=== PATIENT | female | born 1990 | race Caucasian/White ===

== ENCOUNTER 2020-07-11 08:45 | Day surgery (SDC) | payer MEDICAID ==
[~2020-07-11] VITALS: Ht 160 cm; Wt 76.4 kg
[~2020-07-11 08:45] MED LIST: SEROQUEL100 MG PO; TYLENOL W/CODEI1 TAB PO; XANAX0.25 MG PO
[2020-07-11 09:12] LABS: HEMATOCRIT 42.8 % (36.0-48.0); HEMOGLOBIN 14.5 g/dL (12-16); MCH 30.4 pg (26.0-34.0); MCHC 33.9 g/dL (31.0-37.0); MCV 89.7 fL (80.0-100.0); MEAN PLATELET VOLUME 9.3 fL (7.4-10.4); RBC 4.77 10x6/uL (4.00-5.40); RDW 12.4 % (11.5-14.5); WBC 6.9 10x3/uL (4.8-10.8)
[2020-07-11 10:33] VITALS: BP 114/71; Ht 160 cm; Wt 76.4 kg
--- NOTE | 2020-07-11 14:55 | NUR ---
UP IN ROOM TO VOID, IV OUT TIP INTACT.
--- NOTE | 2020-07-11 15:07 | NUR ---
DISCHARGE INSTRUCTIONS PROVIDED TO PT AND SPOUSE, BOTH VOICED UNDERSTANDING. PT THEN DISCHARGED VIA W/C TO POV WITH SPOUSE DRIVING. ALL BELONGINGS WITH PT.
== END 2020-07-11 15:07 | disposition home or self-care (01) ==
LOC: D.OPS 08:45
PROVIDERS: Anesthesiology; ATTEND Obstetrics & Gynecology Maternal & Fetal Medicine
DX: N39.41 Urge incontinence (principal)

== ENCOUNTER 2020-08-22 06:15 | Day surgery (SDC) | payer MEDICAID ==
[~2020-08-22] VITALS: Ht 162.6 cm; Wt 76.7 kg
[2020-08-22 06:45] LABS: HEMATOCRIT 42.6 % (36.0-48.0); HEMOGLOBIN 14.4 g/dL (12-16); MCH 30.3 pg (26.0-34.0); MCHC 33.8 g/dL (31.0-37.0); MCV 89.7 fL (80.0-100.0); MEAN PLATELET VOLUME 9.8 fL (7.4-10.4); RBC 4.75 10x6/uL (4.00-5.40); RDW 12.3 % (11.5-14.5); WBC 7.9 10x3/uL (4.8-10.8)
[2020-08-22 08:01] VITALS: BP 106/68; Ht 162.6 cm; Wt 76.7 kg
--- NOTE | 2020-08-22 08:53 | NUR ---
[employer] SMN SYSTEM TINED LEAD KIT #1201 X 1 SN [id number] EXP. DATE: 06/05/2022 OPENED FOR USE WITH THIS PATIENT NOTED, SAMMIE ANAND
--- NOTE | 2020-08-22 08:54 | NUR ---
[employer] SMN SYSTEM LEAD IMPLANT KIT #1801 LOT # [id number] EXP. DATE: 02/01/2022 OPENED FOR USE WITH THIS PATIENT. NOTED, SAMMIE ANAND
--- NOTE | 2020-08-22 09:05 | NUR ---
[employer] ([employer] NEUROSTIMULATOR #1101 SN # [id number] EXP DATE:04/16/2023 IMPLANT NOTED, SAMMIE ANAND
--- NOTE | 2020-08-22 10:34 | NUR ---
1030 MEDICATED FOR PAIN, DRESSING CDI. NO SWELLING AT INCISION SITE.
--- NOTE | 2020-08-22 10:36 | NUR ---
1030 MEDICATED FOR PAIN
--- NOTE | 2020-08-22 12:07 | NUR ---
1055 [employer] SUPERVISOR HERE TO INSTRUCT PT ON POST OP INSTRUCTIONS. RX GIVEN AND SURGERY POST OP INSTRUCTIONS.
--- NOTE | 2020-08-22 12:08 | NUR ---
1115 IV REMOVED AND PT GETTING DRESSED PAIN EASING SOME. DRESSING CDI
== END 2020-08-22 11:30 | disposition home or self-care (01) ==
LOC: D.OPS 06:15
PROVIDERS: Anesthesiology; ATTEND Obstetrics & Gynecology Maternal & Fetal Medicine
DX: N39.41 Urge incontinence (principal)